=== PATIENT | female | born 1970 | race Caucasian/White ===

== ENCOUNTER → 2016-06-15 | Outpatient (CLI) | payer BC | LOC: LAB 15:42 | DX: D50.9 Iron deficiency anemia, unspecified (principal) | CPT/HCPCS: 81001 ==

== ENCOUNTER → 2016-09-18 | Outpatient (CLI) | payer BC ==
[2016-09-18 16:45] LABS: HEMOGLOBIN 13.9 gm/dl (12.3-15.3); RED BLOOD COUNT 4.88 M/UL (4.00-5.10); WHITE BLOOD COUNT 9.3 K/UL (4.5-11.0)
== END ==
LOC: LAB 16:21
PROVIDERS: Internal Medicine Hematology & Oncology
DX: D50.9 Iron deficiency anemia, unspecified (principal)
CPT/HCPCS: 36415; 82728; 83540; 83550; 85025

== ENCOUNTER → 2016-09-21 | Outpatient (CLI) | payer BC | LOC: US 09-11 09:30 | DX: R10.9 Unspecified abdominal pain (principal); K80.20 Calculus of gallbladder without cholecystitis without obstruction | CPT/HCPCS: 76700 ==

== ENCOUNTER 2020-11-29 05:39 | Emergency (ER) | payer BC ==
[~2020-11-29 05:39] MED LIST: ADIPEX-P37.5 MG PO; IBUPROFEN800 MG PO
[2020-11-29 06:05] LABS: HEMOGLOBIN 11.2 gm/dl (12.3-15.3); RED BLOOD COUNT 4.95 M/UL (4.00-5.10); WHITE BLOOD COUNT 6.6 K/UL (4.5-11.0)
[2020-11-29 06:27] LABS: BUN/CREATININE RATIO 16 (0-10)
[2020-11-29] MEDS ORDERED: EC-NAPROSYN500 MG PO (10:44)
[2020-11-30 22:09] LABS: CHLAMYDIA TRACHOMATIS, NAA Negative (Negative); NEISSERIA GONORRHOEAE, NAA Negative (Negative)
== END 2020-11-29 11:09 | disposition home or self-care (01) ==
LOC: ER1 05:39
PROVIDERS: Physician Assistant
DX: D25.9 Leiomyoma of uterus, unspecified (principal)
CPT/HCPCS: 76830; 80053; 81001; 83690; 85025; 87077; 87086; 87186; 99284; J1885; Q9967

== ENCOUNTER → 2020-12-07 | Outpatient (CLI) | payer BC ==
[~2020-12-07] MED LIST changes: +EC-NAPROSYN500 MG PO
== END ==
LOC: RAD 08:21
DX: M54.9 Dorsalgia, unspecified (principal); M54.2 Cervicalgia; M47.812 Spondylosis without myelopathy or radiculopathy, cervical region; M47.814 Spondylosis without myelopathy or radiculopathy, thoracic region; M47.816 Spondylosis without myelopathy or radiculopathy, lumbar region
CPT/HCPCS: 72050; 72072; 72110